=== PATIENT | female | born 1975 | race African-American/Black ===

== ENCOUNTER 2016-05-06 12:01 | Emergency (ER) | payer OTHER ==
[~2016-05-06] VITALS: Ht 162.6 cm; Wt 88.9 kg
[~2016-05-06 12:01] MED LIST: ATIVAN1 M1 PO; FIORICET 325 MG1 TAB PO; IBU800 MG PO; PROVENTIL0.09 MG/A1 INH; TYLENOL #31 TAB PO
--- NOTE | 2016-05-06 13:28 | ED DYSPNEA/ASTHMA COMPLAINT ---
History of Present Illness General Chief Complaint: General Adult Stated Complaint: SIB MD CHRISTIAN TO RULE OUT PE, SOB Source: patient Exam Limitations: no limitations Allergies Coded Allergies: shellfish derived (Severe, ANAPHYLAXIS 04/07/16) SEAFOOD pollen extracts (Intermediate, SNEEZING, WATERY EYES 04/07/16) cat dander (CATS 04/07/16) Reconcile Medications Butalb/Acetaminophen/Caffeine (Fioricet 50-300-40 MG Capsule) 50 MG-300 MG-40 MG CAPSULE HEADACHE (Reported) Hydroxyzine Pamoate 50 MG CAPSULE 1 CAP PO Q8 TACHYCARDIA (Reported) Ibuprofen (Ibu) 800 MG TAB 1 TAB PO TID ARTHRITIS (Reported) Triage Note: PT STATES THAT SHE WAS SEEN HERE 2 MONTHS AGO FOR CP/SOB AND DIAGNOSED WITH PALPATIONS AND WAS TO FOLLOW UP WITH CHEMICAL RESEARCH TECHNICIAN, PT WENT TO SEE DR CHRISTIAN THIS AM AND WAS SENT TO ER TO RULE OUT PE. PT NOTED TO BE SOB WHILE TALKING , O2 SAT 100 % ON RA. PT IS ALLERGIC TO SHELL FISH. DENIES CP AT THIS TIME , STATES THAT SHE DID HAVE CP THIS AM. R LEG NUMBNESS BUT STATES THAT SHE HAS SCIATICA Triage Nurses Notes Reviewed? yes Onset: Abrupt Duration: week(s): (6), constant, continues in ED Timing: recent history Severity: moderate, severe Activities at Onset: none : No Patient currently breastfeeds: No HPI: 41-year-old female comes into emergency room for further evaluation of shortness of breath and chest pain has been going on for the past 6 weeks. Patient was sent in by Dr. Christian to have pulmonary embolism ruled out. Patient denies being on any control. Patient is been having chest pains and sweats at nighttime. Patient reports that she feels like her heart is racing at times. Denies any history of blood clots. Denies any vomiting. Denies any diaphoresis. Denies any other associated symptoms. (CHUY CONNER) Vital Signs & Intake/Output Vital Signs & Intake/Output Vital Signs Date Time Temp Pulse Resp B/P Pulse O2 O2 Flow FiO2 Ox Delivery Rate 05/06 1639 97.9 71 18 120/63 99 Room Air 05/06 1533 100 05/06 1423 97.8 87 18 122/63 100 Room Air 05/06 1207 97.7 96 20 144/85 100 Room Air Past History Travel History Traveled to [place] past 21 day No Medical History Any Pertinent Medical History? see below for history Neurological: migraine (complex migraine) EENT: NONE Cardiovascular: NONE Respiratory: asthma Gastrointestinal: NONE Hepatic: NONE Renal: NONE Musculoskeletal: NONE Psychiatric: NONE Endocrine: NONE Blood Disorders: NONE Cancer(s): NONE FUSING FURNACE LOADER/Reproductive: NONE Surgical History Surgical History: non-contributory Psychosocial History Who do you live with Family Services at Home None What is your primary language Latvian Tobacco Use: Never used ETOH Use: denies use Illicit Drug Use: denies illicit drug use Family History Hx Contributory? No (CHUY CONNER) Review of Systems Review of Systems Constitutional: Reports: no symptoms. EENTM: Reports: no symptoms. Respiratory: Reports: see HPI. Cardiovascular: Reports: see HPI. GI: Reports: no symptoms. Genitourinary: Reports: no symptoms. Musculoskeletal: Reports: no symptoms. Skin: Reports: no symptoms. Neurological/Psychological: Reports: no symptoms. Hematologic/Endocrine: Reports: no symptoms. Immunologic/Allergic: Reports: no symptoms. All Other Systems: Reviewed and Negative (CHUY CONNER) Physical Exam Physical Exam General Appearance: well developed/nourished, no apparent distress, alert, awake Head: atraumatic, normal appearance Eyes: Bilateral: normal appearance, EOMI. Ears, Nose, Throat: normal pharynx, normal ENT inspection, hearing grossly normal Neck: normal inspection, full range of motion Respiratory: normal breath sounds, chest non-tender, no respiratory distress Cardiovascular: regular rate/rhythm Gastrointestinal: soft Extremities: normal inspection Neurologic/Psych: awake, alert, oriented x 3, normal gait, normal mood/affect Skin: intact, normal color Core Measures ACS in differential dx? No Severe Sepsis Present: No Septic Shock Present: No (CHUY CONNER) Progress Differential Diagnosis: asthma, AMI, bronchitis, costochondritis, CHF, COPD, musculoskeletal pain, pericarditis, pulmonary embolism, pneumonia, pneumothorax, rib fracture, unstable angina Diagnostic Imaging: Viewed by Me: CT Scan. Discussed w/RAD: CT Scan. Radiology Impression: SERVICE DATE: 05/06/16132 EXAM TYPE: CAT - CTA CHEST- PULMONARY EMBOLISM EXAMINATION: CT ANGIOGRAM OF THE CHEST WITH CONTRAST (CT PULMONARY ANGIOGRAM FOR PE) CLINICAL INFORMATION: Chest pain and shortness of breath. Evaluate for pulmonary embolism. COMPARISON: CXR from 04/07/2016. TECHNIQUE: Prior to contrast administration, noncontrast localization images were obtained. Subsequently, multidetector volumetric imaging was performed from the thoracic inlet to below the diaphragms following the administration of 70 mL of Optiray 350 intravenous contrast. No contrast reaction reported. Sagittal, coronal, and MIP oblique sagittal reformatted images were obtained on the CT workstation, uploaded to PACS, and reviewed. Total exam dose-length product 479 mGy-cm FINDINGS: QUALITY OF STUDY/CONTRAST BOLUS: Satisfactory. PULMONARY ARTERIES: Pulmonary arteries are normal in caliber. There are no embolic filling defects identified within the main, lobar or segmental vessels. THORACIC AORTA: Thoracic aorta is normal in size. No intramural hematoma, aneurysm or dissection. LUNGS AND PLEURA: Trachea and central airways are widely patent and normal in caliber. No pulmonary consolidation, edema, pleural effusion or pneumothorax. MEDIASTINUM: Normal heart size. No pericardial effusion. No evidence of septal bowing or right heart strain. The esophagus is unremarkable. The visualized portion of the thyroid gland is unremarkable. Small amount of residual thymic tissue is present within the superior mediastinum. LYMPHATICS: No axillary, hilar, mediastinal or internal mammary lymphadenopathy. 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 No reflux of contrast into the hepatic veins to suggest elevated right heart pressures. OSSEOUS STRUCTURES: No acute or suspicious osseous abnormality. IMPRESSION: No acute imaging findings within the chest. No evidence of pulmonary embolism. DICTATED BY: PARMJIT AIKEN MD DATE/TIME DICTATED:05/06/161531 PUZZLE ASSEMBLER:ENOCH DATE/TIME TRANSCRIBED:05/06/161531 Initial ED EKG: normal intervals, normal p-waves, normal QRS complex, normal sinus rhythm, rate (76) (CHUY CONNER) Plan of Care: Orders Procedure Date/time Status ARTERIAL BLOOD GAS (GEN) 05/06 1559 Active Add-on Test (ER Only) 05/06 1557 Active THYROID STIMULATING HORMONE 05/06 1415 Complete FREE T4 05/06 1415 Complete URINE 05/06 1327 Complete URINALYSIS 05/06 1327 Complete TROPONIN LEVEL 05/06 1327 Complete COMPREHENSIVE METABOLIC PANEL 05/06 1327 Complete CBC WITHOUT DIFFERENTIAL 05/06 1327 Complete EKG 05/06 1327 Active Laboratory Tests 05/06/16 1610: pH 7.43, pCO2 30 L, pO2 107 H, HCO3 20 L, ABG O2 Sat (Measured) 98.0, P-50 ( Temp Corrected) N, Carboxyhemoglobin 0 L, O2 Concentration % R/A, Temperature 97.8, Phlebotomy Draw Site LEFT RADIAL 05/06/16 1415: Anion Gap 10, Estimated GFR > 60, BUN/Creatinine Ratio 12.5, Glucose 79, Calcium 9.5, Total Bilirubin 0.6, AST 27, ALT 26, Alkaline Phosphatase 53, Troponin I < 0.01, Total Protein 7.6, Albumin 4.3, Globulin 3.3, Albumin/Globulin Ratio 1.3, TSH 1.070, Free T4 0.96, CBC w Diff NO MAN DIFF REQ, RBC 4.34, MCV 93.6, MCH 31.4 H, RDW 15.0 H, MPV 8.0, Gran % 48.7, Lymphocytes % 44.5, Monocytes % 4.8, Eosinophils % 1.1, Basophils % 0.9, Absolute Granulocytes 2.8, Absolute Lymphocytes 2.6, Absolute Monocytes 0.3, Absolute Eosinophils 0.1, Absolute Basophils 0.1, PUBS MCHC 33.6 05/06/16 1413: Urine Color YEL, Urine Clarity CLEAR, Urine pH 8.0, Ur Specific [place] 1.020, Urine Protein NEG, Urine Ketones NEG, Urine Nitrite NEG, Urine Bilirubin NEG, Urine Urobilinogen 1.0, Ur Leukocyte Esterase NEG, Ur Microscopic EXAM NOT REQUIRED, Urine Hemoglobin NEG, Urine Glucose NEG, Urine Test NEGATIVE Departure Departure Disposition: HOME OR SELF CARE Condition: Stable Clinical Impression Primary Impression: Dyspnea Referrals: MICHELL FLORES (PCP/Family) Additional Instructions: Follow back up with Dr. Christian. Return to the emergency room immediately if any other concerns worsening symptoms. Please go over all results of today's visit with your primary care doctor. Contact your primary care doctor to let them know you were here in the emergency room. There may be nonspecific findings which may not be related to your visit today here in the emergency room but may require further evaluation and chronic monitoring by your primary care doctor. If you had a laceration today the chance of foreign body always remains. You should follow-up with your primary care doctor for recheck in 3-5 days for a wound check. If you had an x-ray done there is a chance that a fracture could have been missed on initial read and you should follow-up with your primary care doctor for repeat x-rays if symptoms persist. If your blood pressure was elevated here in the emergency room please have rechecked by her primary care doctor within the next 48 hours by your primary care doctor. If you were prescribed a narcotic here in the emergency room or any type of controlled substances you're not allowed to drive while taking this medication or operate any type of heavy machinery. Narcotics can make you feel lightheaded dizziness nausea and can cause constipation. You may need to apple picker a stool softener. Thank you for choosing [facility] emergency room. Please return to the emergency room immediately if you have any other concerns worsening of symptoms. Departure Forms: Customer Survey General Discharge Information Comments 05/06/2016 6:41:56 PM I discussed results with Dr. Christian. Patient will be followed up as an outpatient. Case was discussed with Dr. Morton. Patient has been sleeping in the room in no apparent respiratory distress here in the emergency room. Clinically looks well. Nontoxic-appearing. No need for patient to be admitted to the hospital his time. Patient can continue to get worked up as an outpatient. (CHUY CONNER) PA/EXPERIMENTAL ROCKETSLED MECHANIC Co-Sign Statement Statement: ED Attending supervision documentation- [] I saw and evaluated the patient. I have also reviewed all the pertinent lab results and diagnostic results. I agree with the findings and the plan of care as documented in the PA's/EXPERIMENTAL ROCKETSLED MECHANIC's documentation. [X] I have reviewed the ED Record and agree with the PA's/EXPERIMENTAL ROCKETSLED MECHANIC's documentation. [] Additions or exceptions (if any) to the PAs/EXPERIMENTAL ROCKETSLED MECHANIC's note and plan are summarized below: [] (SIMONA DUKES,REAGAN Wright) Critical Care Note Critical Care Note Critical Care Time: non-applicable (CHUY CONNER)
[2016-05-06] MEDS ORDERED: HYDROXYZINE PAM50 M1 PO (13:54)
[2016-05-06] MEDS ORDERED: FIORICET 50-301 EACH (13:55)
[2016-05-06 14:28] LABS: ABSOLUTE BASOPHIL COUNT 0.1 /CUMM (0.0-0.2); ABSOLUTE EOSINOPHIL COUNT 0.1 /CUMM (0.0-0.7); ABSOLUTE GRANULOCYTE CT 2.8 /CUMM (1.4-6.5); ABSOLUTE LYMPH COUNT 2.6 /CUMM (1.2-3.4); ABSOLUTE MONOCYTE COUNT 0.3 /CUMM (0.10-0.60); BASOPHIL % 0.9 % (0.0-2.0); EOSINOPHIL % 1.1 % (0-5); GRANULOCYTE % 48.7 % (42.2-75.2); HEMATOCRIT 40.6 % (37-47); MEAN CORPUSCULAR HGB 31.4 PG (27.0-31.0); MEAN CORPUSCULAR HGB CONC 33.6 G/DL (33.0-37.0); MEAN CORPUSCULAR VOLUME 93.6 FL (81.0-99.0); PLATELET COUNT 272 /CUMM (130-400); RED BLOOD CELL CT 4.34 /CUMM (4.20-5.40); WHITE BLOOD CELL COUNT 5.8 /CUMM (4.8-10.8)
--- NOTE | 2016-05-06 15:42 | CT SCAN REPORT ---
EXAMINATION: CT ANGIOGRAM OF THE CHEST WITH CONTRAST (CT PULMONARY ANGIOGRAM FOR PE) CLINICAL INFORMATION: Chest pain and shortness of breath. Evaluate for pulmonary embolism. COMPARISON: CXR from 04/07/2016. TECHNIQUE: Prior to contrast administration, noncontrast localization images were obtained. Subsequently, multidetector volumetric imaging was performed from the thoracic inlet to below the diaphragms following the administration of 70 mL of Optiray 350 intravenous contrast. No contrast reaction reported. Sagittal, coronal, and MIP oblique sagittal reformatted images were obtained on the CT workstation, uploaded to PACS, and reviewed. Total exam dose-length product 479 mGy-cm FINDINGS: QUALITY OF STUDY/CONTRAST BOLUS: Satisfactory. PULMONARY ARTERIES: Pulmonary arteries are normal in caliber. There are no embolic filling defects identified within the main, lobar or segmental vessels. THORACIC AORTA: Thoracic aorta is normal in size. No intramural hematoma, aneurysm or dissection. LUNGS AND PLEURA: Trachea and central airways are widely patent and normal in caliber. No pulmonary consolidation, edema, pleural effusion or pneumothorax. MEDIASTINUM: Normal heart size. No pericardial effusion. No evidence of septal bowing or right heart strain. The esophagus is unremarkable. The visualized portion of the thyroid gland is unremarkable. Small amount of residual thymic tissue is present within the superior mediastinum. LYMPHATICS: No axillary, hilar, mediastinal or internal mammary lymphadenopathy. 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 No reflux of contrast into the hepatic veins to suggest elevated right heart pressures. OSSEOUS STRUCTURES: No acute or suspicious osseous abnormality. IMPRESSION: No acute imaging findings within the chest. No evidence of pulmonary embolism.
[2016-05-06 16:39] VITALS: BP 120/63
== END 2016-05-06 17:08 ==
LOC: ERH 12:01
PROVIDERS: Physician Assistant Medical
DX: R06.00 Dyspnea, unspecified (principal); R07.9 Chest pain, unspecified
CPT/HCPCS: 81003; 81025; 93005; 93010; 96374; J1200

== ENCOUNTER 2016-10-16 09:46 | Emergency (ER) | payer OTHER ==
[~2016-10-16] VITALS: Ht 162.6 cm; Wt 93.4 kg
[~2016-10-16 09:46] MED LIST changes: +FIORICET 50-301 EACH; +HYDROXYZINE PAM50 M1 PO
[2016-10-16 09:54] VITALS: BP 126/80
--- NOTE | 2016-10-16 10:12 | ED UPPER/LOWER EXTREMITY COMPL ---
History of Present Illness General Chief Complaint: Lower Extremity Problems Stated Complaint: LFT LEG SWELLING PAINFUL Source: patient Exam Limitations: no limitations Vital Signs & Intake/Output Vital Signs & Intake/Output Vital Signs Date Time Temp Pulse Resp B/P B/P Pulse O2 O2 Flow FiO2 Mean Ox Delivery Rate 10/16 0954 98.7 88 20 126/80 99 Room Air Allergies Coded Allergies: shellfish derived (Severe, ANAPHYLAXIS 04/07/16) SEAFOOD pollen extracts (Intermediate, SNEEZING, WATERY EYES 04/07/16) cat dander (CATS 04/07/16) Reconcile Medications Butalb/Acetaminophen/Caffeine (Fioricet 50-300-40 MG Capsule) 50 MG-300 MG-40 MG CAPSULE HEADACHE (Reported) Hydroxyzine Pamoate 50 MG CAPSULE 1 CAP PO Q8 TACHYCARDIA (Reported) Ibuprofen (Ibu) 800 MG TAB 1 TAB PO TID ARTHRITIS (Reported) Triage Note: LEFT ANKLE SWELLING AND PAIN SINCE FRIDAY. LEFT CALF SWELLING X 10 DAYS. HAD U/S ON CALF WHICH WAS NEGATIVE FOR DVT. PT DENIES ANY INJURY ON EITHER CALF OR ANKLE Triage Nurses Notes Reviewed? yes Onset: Gradual (3) Duration: day(s): (3), constant Timing: recent history Severity: moderate Severity Numbers: 6 Pain/Injury Location: Left: Leg. Method of Injury: unknown Modifying Factors: Worsens With: movement. Associated Symptoms: swelling : No Patient currently breastfeeds: No HPI: 41 year old female with asthma, arthritis presents to ER for evaluation complaining with 3 day history of swelling bruising to her left calf and ankle. She states for the past 10 days she's had swelling pain to her left calf she had an outpatient ultrasound performed last week that was unremarkable. 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 She' s been taking Vicodin which was prescribed by her doctor to help with the pain. The pain is worse with weightbearing and movement of her foot. She denies any hip or knee pain no other joint pain or bruising to her skin. She denies chest pain shortness of breath fever chills. Pain is sharp, With intermittent spasm (NATHALIE REVELES,JAYLAN) Past History Travel History Traveled to [place] past 21 day No Medical History Any Pertinent Medical History? see below for history Neurological: migraine (complex migraine) EENT: NONE Cardiovascular: NONE Respiratory: asthma Gastrointestinal: NONE Hepatic: NONE Renal: NONE Musculoskeletal: osteoarthritis Psychiatric: NONE Endocrine: NONE Blood Disorders: NONE Cancer(s): NONE MANAGER OPERATIONS/Reproductive: NONE Surgical History Surgical History: non-contributory Psychosocial History Who do you live with Family Services at Home None What is your primary language Indonesian Tobacco Use: Quit >30 days ago ETOH Use: occasional use Illicit Drug Use: denies illicit drug use Family History Hx Contributory? No (JAYLAN JUNE) Review of Systems Review of Systems Constitutional: Reports: see HPI. All Other Systems: Reviewed and Negative Comments Review of systems: See HPI, All other systems negative. Constitutional, no chills no fever, no malaise HEENT: no sore throat no congestion, no ear pain Cardiovascular: No chest pain , no palpitation Skin: no rashes, no change in skin Respiratory: No dyspnea no cough no sputum no hemoptysis GI: No nausea no vomiting, no diarrhea, no bloating/constipation Muscle skeletal: No joint pain, no joint swelling, no back pain, no neck pain, Neurologic: No numbness no headache Psych: No stress Heme/endocrine: No bruising Immunology: No lymphadenopathy (JAYLAN JUNE) Physical Exam Physical Exam General Appearance: well developed/nourished, no apparent distress, alert Comments: Well-developed well-nourished patient in no apparent distress. HEENT: Atraumatic, extraocular motion intact Neck: Supple, FROM Back: FROM Cardiovascular: Regular rate and rhythms no murmurs rubs Respiratory:o respiratory distress. Patient speaking in full complete sentences. Breath sounds clear to auscultation bilaterally: NO W/R/R Upper Extremities: full range of motion Hip/Pelvis: Atraumatic/Stable. FROM. Knee: Atraumatic/stable. FROM. No joint swelling, no effusion. No laxity. No pain with ROM Le X 3 CM AREA OF ECCHYMOSIS NOTED TO THE MEDIAL MID L CALF, TENDER TO PALPATION, NO ERYTHEMA, NO WARMTH, the rest of leg and araiza is Nontender. 5 out of 5 strength in the lower extremity, normal dorsiflexion of great toe bilaterally, gross sensation is intact, patellar tendon reflex 2+ bilaterally. Ankle/Foot: mild swelling and ecchymosis medially, no overlying warmth or erythema Skin intact. FROM. No swelling, no effusion. No laxity on exam Pulses: Normal/equal DP/PT pulses bilaterally. Brisk cap refill Neuro: awake, alert, and oriented to person, place and time. There were no obvious focal neurologic abnormalities. Skin: Warm & dry;No appreciable rash on exposed skin Psych: Mood affect normal, normal memory normal judgment. (JAYLAN JUNE) Progress Differential Diagnosis: compartment syndrome, contusion, dislocation, fracture, sprain, tendon injury Plan of Care: Orders Procedure Date/time Status Durable Medical Equipment 10/16 1121 Active Ultrasound was reviewed from October 09 with the patient There is been no recent new injury or trauma advise rice crutches and Puma wrap was applied pt has pain medication at home, feels comfortable with plan will follow up with her pmd this week IMPRESSION: 1. No evidence of deep vein thrombosis in the left lower extremity. 2. No Romero's cyst. 3. Within the proximal and medial calf, a small amount of fluid is interposed between the medial gastrocnemius and soleus muscles, likely due to recent injury along the myofascial junction. DICTATED BY: PARMJIT AIKEN MD DATE/TIME DICTATED:10/09/161357 SUPERVISOR COLOR MAKING:ENOCH DATE/TIME TRANSCRIBED:10/09/161357 (JAYLAN JUNE) Diagnostic Imaging: Viewed by Me: Radiology Read. Discussed w/RAD: Radiology Read. Radiology Impression: PATIENT: BG GRAHAM PRESENT AGE: 41 PATIENT ACCOUNT NO: [id number] : 76 LOCATION: [facility] ORDERING PHYSICIAN: JAYLAN REVELES SERVICE DATE: 10/16/16 EXAM TYPE: RAD - XRY- ANKLE 3 OR MORE VIEWS L; [id number], LEFT Indication: Pain and swelling EXAMINATION: Left ankle, left tib-fib. Left tib-fib No fracture. Left ankle 3 views. Soft tissue swelling. No evidence for an acute fracture or dislocation. The mortise is grossly intact. IMPRESSION: No fracture or dislocation left ankle. There is soft tissue swelling. No fracture left tib-fib DICTATED BY: REAGAN RONQUILLO MD DATE/TIME DICTATED:10/16/161132 SUPERVISOR COLOR MAKING:ENOCH DATE/TIME TRANSCRIBED:10/16/161132 CONFIDENTIAL, DO NOT COPY WITHOUT APPROPRIATE AUTHORIZATION. <Electronically signed in Other Vendor System> SIGNED BY: REAGAN RONQUILLO MD 10/16/16 5642 (JAYLAN JUNE) Departure Departure Time of Disposition: 1138 Disposition: HOME OR SELF CARE Condition: Stable Clinical Impression Primary Impression: Calf pain Referrals: MICHELL BAILEY (PCP/Family) Additional Instructions: follow up with dr bailey. rest, keep leg elevated. continue with crutches as discussed. tylenol or ibuprofen for pain and inflammation. return with any concerns Departure Forms: Customer Survey General Discharge Information (JAYLAN JUNE) PA/COMIC BOOK ARTIST Co-Sign Statement Statement: ED Attending supervision documentation- [] I saw and evaluated the patient. I have also reviewed all the pertinent lab results and diagnostic results. I agree with the findings and the plan of care as documented in the PA's/COMIC BOOK ARTIST's documentation. [X] I have reviewed the ED Record and agree with the PA's/COMIC BOOK ARTIST's documentation. [] Additions or exceptions (if any) to the PAs/COMIC BOOK ARTIST's note and plan are summarized below: [] (ANATOLIY DUKES,REZA Camacho)
--- NOTE | 2016-10-16 11:37 | RADIOLOGY REPORT ---
Indication: Pain and swelling EXAMINATION: Left ankle, left tib-fib. Left tib-fib No fracture. Left ankle 3 views. Soft tissue swelling. No evidence for an acute fracture or dislocation. The mortise is grossly intact. IMPRESSION: No fracture or dislocation left ankle. There is soft tissue swelling. No fracture left tib-fib
== END 2016-10-16 12:02 ==
LOC: ERH 09:46
DX: M79.605 Pain in left leg (principal)
CPT/HCPCS: 73590-LT; 73610-LT

== ENCOUNTER 2017-06-22 17:42 | Emergency (ER) | payer OTHER ==
[~2017-06-22] VITALS: Ht 162.6 cm; Wt 91.2 kg
--- NOTE | 2017-06-22 18:19 | ED NECK/BACK PAIN COMPLAINT ---
History of Present Illness General Chief Complaint: Abdominal Pain/Flank Pain Stated Complaint: FELL HURT BACK, "FEELS LIKE LABOR PAIN" Source: patient, family Exam Limitations: no limitations Vital Signs & Intake/Output Vital Signs & Intake/Output Vital Signs Date Time Temp Pulse Resp B/P B/P Pulse O2 O2 Flow FiO2 Mean Ox Delivery Rate 06/23 2011 97.5 65 18 124/75 100 Room Air 06/22 174 98.3 100 18 156/86 98 Room Air Allergies Coded Allergies: shellfish derived (Severe, ANAPHYLAXIS 04/07/16) SEAFOOD pollen extracts (Intermediate, SNEEZING, WATERY EYES 04/07/16) cat dander (CATS 04/07/16) Reconcile Medications Diazepam (Valium) 5 MG TABLET 1 TAB PO BIDP PRN spasm Fluticasone Propionate (Flonase Allergy Relief) 50 MCG/ACTUATION SPRAY.SUSP 1 SPRAY NASB QAM ALLERGIES (Reported) Ibuprofen 800 MG TABLET 1 TAB PO TID PAIN/INFLAMMATION (Reported) Oxycodone HCl/Acetaminophen (Percocet 5-325 MG Tablet) 5 MG-325 MG TABLET 1 TAB PO BID PRN pain Triage Note: 42 YO FEMALE TO TRIAGE C/O LOWER BACK PAIN/SPASMS S/P FALLING DOWN THE STARIS ON FRIDAY. STATES "IT FEELS LIKE LABOR PAINS BUT ITS IN MY BACK" STATES PAIN OCCASIONALLY RADIATES TO THE RLQ. STATES PAIN WAS SO BAD YESTERDAY SHE URINATED ON HERSELF. Triage Nurses Notes Reviewed? yes Onset: Gradual Duration: hour(s): Timing: recent history Quality/Severity: severe Location: lumbar spine, coccyx Radiation: ABDOMEN Context: fall/near fall Method of Injury: fall Loss of Consciousness: no loss of consciousness LMP (ages 10-50): TUBAL LIGATION : No Patient currently breastfeeds: No HPI: 42YO female presents to ED complaining of low back pain radiating to abdomen with intermittent abdominal spasms beginning last night. Patient states that 2 days ago she fell down approximately 4 stairs, she fell onto her buttocks and slid down the stairs, she did not hit her head, no loss of consciousness. Patient states that that today she was not experiencing significant pain. Pain began last night and has been increasing in intensity, described as severe now. Parents and numbness radiating down her right leg. Patient describes abdominal spasms as severe, generalized, associated with 2 episodes of urinary incontinence. She states that these pains are worse than her labor pains, she is also experiencing the urge to "push". Patient has no history of a similar pain in the past. She has a history of kidney stones however states that this pain feels different. Patient denies dysuria, loss of bowel functioning, fevers , chills, vomiting. Past History Travel History Traveled to [place] past 21 day No Medical History Any Pertinent Medical History? see below for history Neurological: migraine (complex migraine) EENT: NONE Cardiovascular: NONE Respiratory: asthma Gastrointestinal: NONE Hepatic: NONE Renal: NONE Musculoskeletal: osteoarthritis Psychiatric: NONE Endocrine: NONE Blood Disorders: NONE Cancer(s): NONE SHAKE MAKER/Reproductive: NONE Surgical History Surgical History: non-contributory Psychosocial History Who do you live with Family Services at Home None What is your primary language Bhutanese Tobacco Use: Never used Family History Hx Contributory? No Review of Systems Review of Systems Constitutional: Reports: no symptoms. Eyes: Reports: no symptoms. Ears, Nose, Throat, Mouth: Reports: no symptoms. Respiratory: Reports: no symptoms. Cardiovascular: Reports: no symptoms. Gastrointestinal/Abdominal: Reports: see HPI. Musculoskeletal: Reports: see HPI. Skin: Reports: no symptoms. Neurological/Psychological: Reports: see HPI. All Other Systems: Reviewed and Negative Comments : SEE HPI Physical Exam Physical Exam General Appearance: well developed/nourished, alert, awake, moderate distress, patient unable to get comfortable d/t her pain Head: atraumatic, normal appearance Eyes: Bilateral: normal appearance. Ears, Nose, Throat, Mouth: hearing grossly normal Neck: normal inspection, supple, full range of motion, no midline tenderness Respiratory: normal breath sounds, no respiratory distress, lungs clear Cardiovascular: regular rate/rhythm Gastrointestinal: normal bowel sounds, soft, no organomegaly, right sided abdominal tenderness Genital/Rectal: normal rectal tone Back: tenderness to lumbar and sacral area Extremities: non-tender, normal range of motion Neurologic/Psych: no motor/sensory deficits, awake, alert, oriented x 3, normal gait, strength 5/5 equal bilateral lower legs Skin: intact, normal color, warm/dry Core Measures CVA/TIA Diagnosis: No Progress Differential Diagnosis: cauda equina syn, herniated disc, myofascial strain, pyelo/UTI, sciatica, spinal cord inj, T/L spine injury, ureterolithiasis Plan of Care: Orders Procedure Date/time Status URINALYSIS 06/23 1819 Complete COMPREHENSIVE METABOLIC PANEL 06/23 1819 Complete CBC WITHOUT DIFFERENTIAL 06/23 1819 Complete Current Medications Sig/Rosalio Start time Last Medication Dose Stop Time Status Admin Diazepam 5 MG ONCE ONE 06/22 1829 CAN (Valium) 06/22 1830 Laboratory Tests 06/22/17 1910: Urine Color YEL, Urine Clarity CLEAR, Urine pH 8.0, Ur Specific [place] 1.015, Urine Protein NEG, Urine Ketones NEG, Urine Nitrite NEG, Urine Bilirubin NEG, Urine Urobilinogen 0.2, Ur Leukocyte Esterase NEG, Ur Microscopic SEDIMENT EXAMINED, Urine RBC 3-5, Urine WBC RARE, Ur Epithelial Cells FEW, Urine Mucus FEW, Urine Hemoglobin TRACE-LYSED, Urine Glucose NEG 06/22/171849: Anion Gap 12, Estimated GFR > 60, BUN/Creatinine Ratio 13.3, Glucose 92, Calcium 9.7, Total Bilirubin 0.5, AST 27, ALT 25, Alkaline Phosphatase 59, Total Protein 7.2, Albumin 4.2, Globulin 3.0, Albumin/Globulin Ratio 1.4, CBC w Diff NO MAN DIFF REQ, RBC 4.05 L, MCV 93.9, MCH 30.5, MCHC 32.5 L, RDW 15.2 H, MPV 8.0, Gran % 34.1 L, Lymphocytes % 53.6 H, Monocytes % 7.9, Eosinophils % 2.5, Basophils % 1.9, Absolute Granulocytes 2.2, Absolute Lymphocytes 3.5 H, Absolute Monocytes 0.5, Absolute Eosinophils 0.2, Absolute Basophils 0.1 Patient's rectal tone is intact. Patient medicated with IV Toradol, morphine, oral Valium. Following medications the patient is more comfortable, laying in stretcher while awaiting results of CT scan. CT scan does not show acute abnormality and spine or abdomen. Remainder of patient's workup is within normal limits. This patient likely requires MRI given her neurologic symptoms of numbness down one leg and her back pain. We cannot obtain MRI at this time here in the emergency department. Patient has intact rectal tone, emergent MRI is not necessary at this time. Patient was offered to stay in the emergency department for further pain management however states she feels more comfortable now, feels comfortable going home with oral medications and follow up with her primary care doctor tomorrow. Patient will discuss MRI with her primary care doctor. The patient agrees with the plan of care. The patient was discussed with Dr. Morton who agrees with this plan. Diagnostic Imaging: Viewed by Me: CT Scan. Discussed w/RAD: CT Scan. Radiology Impression: PATIENT: BG GRAHAM PRESENT AGE: 42 PATIENT ACCOUNT NO: [id number] : 76 LOCATION: [facility] ORDERING PHYSICIAN: Becky REVELES SERVICE DATE: 06/22/17 EXAM TYPE: CAT - CT ABD & PELVIS W/O IV CONTRAS CT ABDOMEN AND PELVIS WITHOUT CONTRAST CLINICAL INFORMATION: Back pain radiating to the abdomen and numbness down the right leg. COMPARISON: Abdominal CT 10/07/2008. TECHNIQUE: Multidetector volumetric imaging was performed from the superior aspect of the liver through the pubic symphysis. Sagittal and coronal reformatted images were obtained on the technologist's workstation. Dedicated lumbar reformats were also obtained. FINDINGS: The lung bases are clear. There is a 1.9 cm indeterminate hypodense lesion within the right lobe of the liver on image 25 of series 2 that previously enhanced and measured 1.1 cm. Liver protocol MRI with and without contrast would be helpful in more definitive assessment. Limited evaluation of the unenhanced spleen, adrenal glands, gallbladder, and pancreas reveals no definite abnormality. The kidneys are symmetric in size without evidence of hydronephrosis or nephrolithiasis. Extrarenal pelvis on the right is again noted. The large and small bowel are normal in caliber without evidence of mechanical obstruction. No focal inflammatory changes adjacent to the large or the small bowel. The appendix is normal. There is no free air and there is no intra-abdominal free fluid. No mesenteric or retroperitoneal adenopathy. The pelvic viscera are normal. Multiple calcified phleboliths within the pelvis. No pelvic adenopathy. No free fluid within the pelvis. There are no acute osseous abnormalities. Lumbar alignment is normal. Vertebral body heights are maintained and the disc spaces are preserved within the lumbar spine. No definite disc herniations are identified though MRI would be more sensitive. No appreciable central canal stenosis nor foraminal stenosis. There is sclerosis involving the SI joints bilaterally with small marginal erosions. No significant soft tissue abnormality. IMPRESSION: - No acute findings within the abdomen or pelvis. No definite disc herniations are identified though MRI would be more sensitive in evaluation. - There is a 1.9 cm indeterminate hypodense lesion within the right lobe of the liver on image 25 of series 2 that previously enhanced and measured 1.1 cm. Liver protocol MRI with and without contrast would be helpful in more definitive assessment. - There is sclerosis involving the SI joints bilaterally with small marginal erosions. DICTATED BY: Puneet Larsen MD DATE/TIME DICTATED :06/22/171952 PAINTER HAND:ENOCH DATE/TIME TRANSCRIBED:06/22/171952 CONFIDENTIAL, DO NOT COPY WITHOUT APPROPRIATE AUTHORIZATION. < Electronically signed in Other Vendor System> SIGNED BY: Puneet Larsen MD 06/22/172006 Departure Departure Disposition: HOME OR SELF CARE Condition: Stable Clinical Impression Primary Impression: Back pain Qualifiers: Back pain location: low back pain Chronicity: acute Back pain laterality: right Sciatica presence: without sciatica Qualified Code: M54.5 - Low back pain Secondary Impressions: Abdominal spasms, Paresthesias Referrals: Jolie Donnelly APRN (PCP/Family) Additional Instructions: Take oxycodone as prescribed as needed for pain, take Valium as prescribed as needed for spasms. These medications are controlled substances, they may be habit forming, they cause drowsiness, do not drive or drink alcohol while taking this medications. Follow-up through primary care doctor tomorrow morning as discussed. You may require an MRI for further evaluation of your back pain. Return with any worsening symptoms or concerns such as increasing pain, incontinence of urine or stool, numbness of your groin, inability to walk. Please note that there might be incidental findings in your evaluation that are unrelated to the current emergency department visit. Please notify your primary care doctor about this emergency department visit in order to obtain and review all of the testing performed so that these incidental findings can be monitored as needed. If you had an x-ray performed, please understand that some fractures may not be seen on the initial set of x-rays. If your symptoms persist you might need a repeat set of x-rays to check for such a fracture. If you had a laceration evaluated, please understand that foreign bodies such as glass or wood may not be visible to the naked eye or on plain x-rays. If the wound becomes red, swollen, increasingly more painful or if there is any drainage from the wound, please have it reevaluated by a physician for the possibility of a retained foreign body. If you're unable to follow up as outlined in the discharge instructions please return to the emergency department. Thank you for choosing the [facility] Emergency Department for your care. It was a pleasure to serve you today. Departure Forms: Customer Survey General Discharge Information Prescriptions: Current Visit Scripts Oxycodone HCl/Acetaminophen (Percocet 5-325 MG Tablet) 1 TAB PO BID PRN pain #10 TAB Diazepam (Valium) 1 TAB PO BIDP PRN spasm #10 TAB
[2017-06-22 18:58] LABS: ABSOLUTE BASOPHIL COUNT 0.1 /CUMM (0.0-0.2); ABSOLUTE EOSINOPHIL COUNT 0.2 /CUMM (0.0-0.7); ABSOLUTE GRANULOCYTE CT 2.2 /CUMM (1.4-6.5); ABSOLUTE LYMPH COUNT 3.5 /CUMM (1.2-3.4); ABSOLUTE MONOCYTE COUNT 0.5 /CUMM (0.10-0.60); BASOPHIL % 1.9 % (0.0-2.0); EOSINOPHIL % 2.5 % (0-5); GRANULOCYTE % 34.1 % (42.2-75.2); HEMATOCRIT 38.1 % (37-47); MEAN CORPUSCULAR HGB 30.5 PG (27.0-31.0); MEAN CORPUSCULAR HGB CONC 32.5 G/DL (33.0-37.0); MEAN CORPUSCULAR VOLUME 93.9 FL (81.0-99.0); PLATELET COUNT 326 /CUMM (130-400); RBC DISTRIBUTION WIDTH 15.2 % (11.5-14.5); RED BLOOD CELL CT 4.05 /CUMM (4.20-5.40); WHITE BLOOD CELL COUNT 6.5 /CUMM (4.8-10.8)
[2017-06-22] MEDS ORDERED: IBUPROFEN800 M1 PO (20:02)
[2017-06-22] MEDS ORDERED: FLONASE ALLERG9.9 ML NASB (20:02)
--- NOTE | 2017-06-22 20:07 | CT SCAN REPORT ---
CT ABDOMEN AND PELVIS WITHOUT CONTRAST CLINICAL INFORMATION: Back pain radiating to the abdomen and numbness down the right leg. COMPARISON: Abdominal CT 10/07/2008. TECHNIQUE: Multidetector volumetric imaging was performed from the superior aspect of the liver through the pubic symphysis. Sagittal and coronal reformatted images were obtained on the technologist's workstation. Dedicated lumbar reformats were also obtained. FINDINGS: The lung bases are clear. There is a 1.9 cm indeterminate hypodense lesion within the right lobe of the liver on image 25 of series 2 that previously enhanced and measured 1.1 cm. Liver protocol MRI with and without contrast would be helpful in more definitive assessment. Limited evaluation of the unenhanced spleen, adrenal glands, gallbladder, and pancreas reveals no definite abnormality. The kidneys are symmetric in size without evidence of hydronephrosis or nephrolithiasis. Extrarenal pelvis on the right is again noted. The large and small bowel are normal in caliber without evidence of mechanical obstruction. No focal inflammatory changes adjacent to the large or the small bowel. The appendix is normal. There is no free air and there is no intra-abdominal free fluid. No mesenteric or retroperitoneal adenopathy. The pelvic viscera are normal. Multiple calcified phleboliths within the pelvis. No pelvic adenopathy. No free fluid within the pelvis. There are no acute osseous abnormalities. Lumbar alignment is normal. Vertebral body heights are maintained and the disc spaces are preserved within the lumbar spine. No definite disc herniations are identified though MRI would be more sensitive. No appreciable central canal stenosis nor foraminal stenosis. There is sclerosis involving the SI joints bilaterally with small marginal erosions. No significant soft tissue abnormality. IMPRESSION: - No acute findings within the abdomen or pelvis. No definite disc herniations are identified though MRI would be more sensitive in evaluation. - There is a 1.9 cm indeterminate hypodense lesion within the right lobe of the liver on image 25 of series 2 that previously enhanced and measured 1.1 cm. Liver protocol MRI with and without contrast would be helpful in more definitive assessment. - There is sclerosis involving the SI joints bilaterally with small marginal erosions.
[2017-06-22] MEDS ORDERED: PERCOCET 5-3251 EACH PO (21:18)
[2017-06-22] MEDS ORDERED: VALIUM5 M2 PO (21:18)
[2017-06-22 21:41] VITALS: BP 132/72
== END 2017-06-22 21:42 ==
LOC: ERH 17:42
PROVIDERS: Physician Assistant
DX: M54.5 Low back pain (principal); M53.3 Sacrococcygeal disorders, not elsewhere classified; R25.2 Cramp and spasm; R20.2 Paresthesia of skin
CPT/HCPCS: 74176; 81001; 96374; 96375; 96376; J1885; J2405; J3360